=== PATIENT | female | born 1965 | race Caucasian/White ===

== ENCOUNTER 2020-02-28 01:30 | Observation (INO) ==
[2020-02-28] MEDS ORDERED: Acetaminophen 325 MG TABLET PO PRN (03:39)
[2020-02-28] MEDS ORDERED: Naloxone 0.4 MG/ML INJ IVP PRN (03:39)
[2020-02-28] MEDS ORDERED: Ondansetron 4 MG/2 ML VIAL IVP PRN (04:44)
[2020-02-28] MEDS ORDERED: Gadolinium Contrast Agent (WT Based) IV PRN (04:47)
[2020-02-28 05:16] LABS: Basophils % 0.2 %; Eosinophils # 0.1 K/mcL (0.0-0.6); Eosinophils % 0.7 %; Hematocrit 40.3 % (35.3-44.9); Hemoglobin 13.9 g/dL (11.5-15.4); Immature Granulocytes % 0.3 % (0-4); Lymphocytes # 2.6 K/mcL (0.6-4.6); Lymphocytes % 22.6 %; Mean Corpuscular HGB Conc 34.5 g/dL (31.6-35.5); Mean Corpuscular Hemoglobin 32.8 pg (28.0-33.3); Mean Platelet Volume 9.2 fL (9.4-12.4); Monocytes # 0.7 K/mcL (0.0-1.3); Neutrophils # 8.1 K/mcL (1.6-8.9); Platelet Count 175 K/mcL (140-400); Red Blood Count 4.24 M/mcL (3.82-4.97); Red Cell Distribution Width 12.5 % (11.5-14.5); Segmented Neutrophils % 70.2 %; White Blood Count 11.6 K/mcL (4.3-11.1)
[2020-02-28 05:18] LABS: Prothrombin Time 11.1 Seconds (9.4-12.1)
[2020-02-28] MEDS: 0.9 % Sodium Chloride 1,000 ML IVC SCH ×2 (05:34→20:48)
[2020-02-28 05:40] LABS: Alanine Aminotransferase 10 Units/L (7-52); Albumin 3.8 g/dL (3.5-5.7); Albumin/Globulin Ratio 1.8 (1.1-2.2); Alkaline Phosphatase 61 Units/L (34-104); Aspartate Amino Transferase 15 Units/L (13-39); BUN/Creatinine Ratio 8 (6-26); Bilirubin,Total 0.6 mg/dL (0.3-1.0); Blood Urea Nitrogen 9 mg/dL (6-20); Calcium 8.9 mg/dL (8.6-10.3); Carbon Dioxide 25 mEq/L (23-29); Chloride 101 mEq/L (98-107); Chol/HDL Ratio 4.4 (0-4.9); Cholesterol 157 mg/dL (< 200); Globulin 2.1 g/dL (2.4-3.5); Glucose 110 mg/dL (70-105); HDL Cholesterol 36 mg/dL (40-59); LDL Cholesterol,Calculated 92 mg/dL (0-99); Osmolality,Calculated 277 (280-300); Phosphorous 2.2 mg/dL (2.7-4.5); Potassium 3.8 mEq/L (3.5-5.1); Sodium 134 mEq/L (136-145); Total Protein 5.9 g/dL (6.4-8.9); Triglycerides 145 mg/dL (< 150); eGFR For African Americans > 60 (> 60); eGFR For Non-African Americans 52 (> 60)
[2020-02-28] MEDS ORDERED: levETIRAcetam 1,000 MG in 0.9 % Sodium Chloride 100 ML IVPB SCH (09:00)
[2020-02-28] MEDS ORDERED: *HR* LORazepam 2 MG/ML VIAL IVP PRN (11:26)
[2020-02-28] MEDS ORDERED: *HR* Enoxaparin 30 MG/0.3 ML SYRINGE SQ SCH (12:18)
[2020-02-28] MEDS: levETIRAcetam 250 MG TABLET PO SCH (18:13)
[2020-02-29 04:30] LABS: Basophils % 0.2 %; Eosinophils # 0.1 K/mcL (0.0-0.6); Eosinophils % 1.7 %; Hematocrit 40.5 % (35.3-44.9); Hemoglobin 13.5 g/dL (11.5-15.4); Immature Granulocytes % 0.2 % (0-4); Lymphocytes # 2.8 K/mcL (0.6-4.6); Lymphocytes % 34.5 %; Mean Corpuscular HGB Conc 33.3 g/dL (31.6-35.5); Mean Corpuscular Hemoglobin 33.1 pg (28.0-33.3); Mean Corpuscular Volume 99.3 fL (83.0-100.0); Mean Platelet Volume 9.2 fL (9.4-12.4); Monocytes # 0.6 K/mcL (0.0-1.3); Monocytes % 7.7 %; Neutrophils # 4.6 K/mcL (1.6-8.9); Platelet Count 168 K/mcL (140-400); Red Blood Count 4.08 M/mcL (3.82-4.97); Red Cell Distribution Width 12.8 % (11.5-14.5); Segmented Neutrophils % 55.7 %; White Blood Count 8.2 K/mcL (4.3-11.1)
[2020-02-29 04:50] LABS: BUN/Creatinine Ratio 6 (6-26); Blood Urea Nitrogen 6 mg/dL (6-20); Calcium 8.6 mg/dL (8.6-10.3); Carbon Dioxide 26 mEq/L (23-29); Chloride 110 mEq/L (98-107); Glucose 100 mg/dL (70-105); Osmolality,Calculated 290 (280-300); Potassium 3.8 mEq/L (3.5-5.1); Sodium 141 mEq/L (136-145); eGFR For African Americans > 60 (> 60); eGFR For Non-African Americans 58 (> 60)
[2020-02-29 04:51] LABS: Phosphorous 2.7 mg/dL (2.7-4.5)
[2020-02-29] MEDS: levETIRAcetam 250 MG TABLET PO SCH (05:52)
[2020-02-29 06:37] VITALS: BP 121/74
[2020-02-29] MEDS ORDERED: atenoloL 25 MG TABLET PO SCH (09:00)
[2020-03-01 07:58] LABS: ANA IgG by ELISA NONE DETECTED (None Detected)
== END 2020-02-29 12:10 | disposition home or self-care (01) ==
LOC: 3BNU → SUATTDRO 03:01
PROVIDERS: ADMIT Internal Medicine; ATTEND Internal Medicine

== ENCOUNTER 2021-07-02 13:34 | Inpatient (IN) ==
[~2021-07-02 13:34] MED LIST: cefTRIAXone 1,000 MG in 0.9 % Sodium Chloride Mini Bag 100 ML IVPB SCH
[2021-07-02] MEDS ORDERED: 0.9 % Sodium Chloride 1,000 ML IVC ONE ×2 (15:12→18:56)
[2021-07-02] MEDS ORDERED: Isovue-370 500 ML BOTTLE IVP ONE (15:49)
[2021-07-02 16:09] LABS: Basophils % 0.1 %; Hemoglobin 12.1 g/dL (11.5-15.4); Immature Granulocytes % 1.4 % (0-4); Lymphocytes # 0.7 K/mcL (0.6-4.6); Lymphocytes % 3.5 %; Mean Corpuscular HGB Conc 33.6 g/dL (31.6-35.5); Mean Corpuscular Hemoglobin 33.1 pg (28.0-33.3); Mean Corpuscular Volume 98.4 fL (83.0-100.0); Mean Platelet Volume 9.7 fL (9.4-12.4); Monocytes # 0.8 K/mcL (0.0-1.3); Monocytes % 4.1 %; Neutrophils # 18.4 K/mcL (1.6-8.9); Platelet Count 124 K/mcL (140-400); Red Blood Count 3.66 M/mcL (3.82-4.97); Red Cell Distribution Width 13.1 % (11.5-14.5); Segmented Neutrophils % 90.9 %; White Blood Count 20.3 K/mcL (4.3-11.1)
[2021-07-02 16:30] LABS: Albumin 3.2 g/dL (3.5-5.7); Albumin/Globulin Ratio 1.2 (1.1-2.2); Bilirubin,Direct 0.1 mg/dL (0.0-0.2); Bilirubin,Indirect 0.6 mg/dL (0.0-1.0); Bilirubin,Total 0.7 mg/dL (0.3-1.0); Calcium 8.4 mg/dL (8.6-10.3); Globulin 2.7 g/dL (2.4-3.5); Potassium 4.5 mEq/L (3.5-5.1); Total Protein 5.9 g/dL (6.4-8.9); Troponin I 0.06 ng/mL (< 0.04)
[2021-07-02] MEDS ORDERED: Aspirin Enteric Coated 81 MG Tablet PO ONE (16:35)
[2021-07-02 17:29] LABS: Amorphous Sediment,Urine Few per hpf (None-Few); Bacteria,Urine Many per hpf (None-Few); Bilirubin,Urine Negative (Negative); Blood,Urine Large (Negative); Clarity,Urine Turbid (Clear); Color,Urine Yellow (Yellow); Glucose,Urine (UA) Normal (Normal); Ketones,Urine Negative (Negative); Leukocyte Esterase,Urine Moderate (Negative); Mucus,Urine Few per lpf (None-Few); Nitrite,Urine Positive (Negative); PH,Urine 5.5 pH Units (5.0-8.0); Protein,Urine 100 mg/dL (Neg-Trace); RBC,Urine 0-3 per hpf (0-3); Specific Gravity,Urine 1.008 (1.010-1.025); Squamous Epithelial Cell,Urine Few per hpf (None-Few); Urobilinogen,Urine Normal (Normal)
[2021-07-02] MEDS ORDERED: cefTRIAXone 1,000 MG in Water for inj. (sterile) 10 ML IVP ONE (17:47)
[2021-07-02] MEDS ORDERED: Melatonin 3 MG TABLET PO PRN (20:49)
[2021-07-02] MEDS ORDERED: Ondansetron 4 MG/2 ML VIAL IVP PRN (20:49)
[2021-07-02] MEDS ORDERED: Naloxone 0.4 MG/ML INJ IVP PRN (20:49)
[2021-07-02] MEDS: 0.9 % Sodium Chloride 1,000 ML IVC SCH ×2 (22:39→22:52)
[2021-07-03 02:21] LABS: Sodium, Urine 22.6 mEq/L
[2021-07-03] MEDS ORDERED: MetroNIDAZOLE 500 MG/100 ML 500 MG/100 ML BAG IVPB SCH (08:00)
[2021-07-03] MEDS ORDERED: Morphine Sulfate 2 MG/ML SYRINGE IVP PRN ×2 (08:47→13:49)
[2021-07-03] MEDS ORDERED: Acetaminophen 325 MG TABLET PO PRN (08:48)
[2021-07-03 08:51] LABS: Acinetobacter baumannii by PCR Not Detected (Not Detect); Candida albicans by PCR Not Detected (Not Detect); Candida glabrata by PCR Not Detected (Not Detect); Candida krusei by PCR Not Detected (Not Detect); Candida parapsilosis by PCR Not Detected (Not Detect); Candida tropicalis by PCR Not Detected (Not Detect); Enterobacter cloacae Cmplx PCR Not Detected (Not Detect); Enterococcus by PCR Not Detected (Not Detect); Escherichia coli by PCR DETECTED (Not Detect); Klebsiella oxytoca by PCR Not Detected (Not Detect); Klebsiella pneumoniae by PCR Not Detected (Not Detect); Proteus by PCR Not Detected (Not Detect); Pseudomonas aeruginosa by PCR Not Detected (Not Detect); Serratia marcescens by PCR Not Detected (Not Detect); Staphylococcus aureus by PCR Not Detected (Not Detect); Staphylococcus by PCR Not Detected (Not Detect); Streptococcus agalactiae(B)PCR Not Detected (Not Detect); Streptococcus by PCR Not Detected (Not Detect); Streptococcus pneumoniae PCR Not Detected (Not Detect); Streptococcus pyogenes (A) PCR Not Detected (Not Detect)
[2021-07-03 08:52] LABS: Hematocrit 35.1 % (35.3-44.9); Hemoglobin 11.8 g/dL (11.5-15.4); Mean Corpuscular HGB Conc 33.6 g/dL (31.6-35.5); Mean Corpuscular Hemoglobin 33.3 pg (28.0-33.3); Mean Corpuscular Volume 99.2 fL (83.0-100.0); Platelet Count 115 K/mcL (140-400); Red Blood Count 3.54 M/mcL (3.82-4.97); Red Cell Distribution Width 13.3 % (11.5-14.5); White Blood Count 13.4 K/mcL (4.3-11.1)
[2021-07-03] MEDS ORDERED: cefTRIAXone 1,000 MG in 0.9 % Sodium Chloride Mini Bag 100 ML IVPB SCH (09:00)
[2021-07-03 09:13] LABS: Calcium 7.9 mg/dL (8.6-10.3); Magnesium 1.9 mg/dL (1.6-2.6); Potassium 4.4 mEq/L (3.5-5.1)
[2021-07-03] MEDS ORDERED: *HR* FentaNYL (PF) 100 MCG/2 ML VIAL ONE (11:41)
[2021-07-03] MEDS ORDERED: Ondansetron 4 MG/2 ML VIAL ONE (11:41)
[2021-07-03] MEDS ORDERED: *HR* Propofol 200 MG/20 ML VIAL IVP ONE (11:41)
[2021-07-03] MEDS ORDERED: Lidocaine -MPF 2% 2 ML VIAL ONE (11:41)
[2021-07-03] MEDS ORDERED: Isovue-300 50ML VIAL ONE (11:49)
[2021-07-03] MEDS ORDERED: Acetaminophen IV 1,000 MG/100 ML BAG IVPB ONE (11:56)
[2021-07-03] MEDS ORDERED: Famotidine 20 MG/2 ML VIAL ONE (11:56)
[2021-07-03] MEDS ORDERED: *HR* Labetalol 20 MG/4 ML SYRINGE IVP PRN (12:13)
[2021-07-03] MEDS ORDERED: *HR* HYDROmorphone (PF) 1 MG/ML SYRINGE IVP PRN (12:13)
[2021-07-03] MEDS ORDERED: *HR* OxyCODONE Immed Rel 5 MG TABLET PO PRN (12:13)
[2021-07-03] MEDS ORDERED: *HR* HYDROmorphone 2 MG TABLET PO PRN (12:13)
[2021-07-03] MEDS ORDERED: Famotidine 20 MG/2 ML VIAL IVP ONE ×2 (12:13→13:49)
[2021-07-03] MEDS ORDERED: Lidocaine -MPF 4% 5 ML AMPUL ONE (12:22)
[2021-07-03] MEDS ORDERED: *HR* Succinylcholine 200 MG/10 ML VIAL IVP ONE (12:22)
[2021-07-03] MEDS ORDERED: LEVETIRACETAM 500 MG PO SCH (13:45)
[2021-07-03] MEDS ORDERED: Ondansetron 4 MG/2 ML VIAL IVP PRN (13:49)
[2021-07-03] MEDS ORDERED: Melatonin 3 MG TABLET PO PRN (13:49)
[2021-07-03] MEDS ORDERED: Isovue-370 500 ML BOTTLE IVP ONE (13:49)
[2021-07-03] MEDS ORDERED: Naloxone 0.4 MG/ML INJ IVP PRN (13:49)
[2021-07-03] MEDS: levETIRAcetam 250 MG TABLET PO SCH ×2 (15:04→20:52)
[2021-07-03] MEDS: MetroNIDAZOLE 500 MG/100 ML 500 MG/100 ML BAG IVPB SCH (15:05)
[2021-07-04] MEDS: MetroNIDAZOLE 500 MG/100 ML 500 MG/100 ML BAG IVPB SCH ×3 (00:19→16:00)
[2021-07-04 06:42] LABS: Hematocrit 31.3 % (35.3-44.9); Hemoglobin 10.7 g/dL (11.5-15.4); Mean Corpuscular HGB Conc 34.2 g/dL (31.6-35.5); Mean Corpuscular Hemoglobin 34.6 pg (28.0-33.3); Mean Corpuscular Volume 101.3 fL (83.0-100.0); Mean Platelet Volume 12.2 fL (9.4-12.4); Platelet Count 193 K/mcL (140-400); Red Blood Count 3.09 M/mcL (3.82-4.97); Red Cell Distribution Width 13.9 % (11.5-14.5); White Blood Count 9.2 K/mcL (4.3-11.1)
[2021-07-04 07:02] LABS: Hypochromasia Present (Not Present); Lymphocytes # 1.1 K/mcL (0.6-4.6); Monocytes # 0.6 K/mcL (0.0-1.3); Neutrophils # 7.5 K/mcL (1.6-8.9); Platelet Estimate Normal (Normal); Reactive Lymphocytes Present (Not Present)
[2021-07-04] MEDS ORDERED: CITALOPRAM HYDROBROMIDE 40 MG PO SCH (09:00)
[2021-07-04] MEDS ORDERED: atenoloL 25 MG TABLET PO SCH (09:00)
[2021-07-04] MEDS ORDERED: NON-FORMULARY MEDICATION 1 EACH EACH (Multivitamin [One Daily Multivitamin] 1 EACH Tablet) PO SCH (09:00)
[2021-07-04] MEDS: levETIRAcetam 250 MG TABLET PO SCH ×2 (09:28→20:26)
[2021-07-04] MEDS: Multivit/Ca/Min/Fe/FA 1 TAB TABLET PO SCH (09:28)
[2021-07-04] MEDS: cefTRIAXone 1,000 MG in 0.9 % Sodium Chloride Mini Bag 100 ML IVPB SCH (09:30)
[2021-07-04] MEDS: atenoloL 25 MG TABLET PO SCH (09:30)
[2021-07-04 10:36] LABS: Calcium 8.2 mg/dL (8.6-10.3); Magnesium 1.9 mg/dL (1.6-2.6); Phosphorous 1.8 mg/dL (2.7-4.5)
[2021-07-04] MEDS: Aspirin 81 MG TAB.CHEW PO SCH (13:34)
[2021-07-04] MEDS ORDERED: Perflutren Lipid Microsphere 1.3 ML in 0.9 % Sodium Chloride 8.7 ML IVP PRN (15:12)
[2021-07-04] MEDS: Acetaminophen 325 MG TABLET PO PRN (18:45)
[2021-07-05] MEDS: MetroNIDAZOLE 500 MG/100 ML 500 MG/100 ML BAG IVPB SCH ×3 (00:22→17:56)
[2021-07-05 05:02] LABS: Basophils % 0.3 %; Eosinophils # 0.1 K/mcL (0.0-0.6); Eosinophils % 0.9 %; Hematocrit 32.6 % (35.3-44.9); Immature Granulocytes % 0.8 % (0-4); Lymphocytes # 0.7 K/mcL (0.6-4.6); Lymphocytes % 6.7 %; Mean Corpuscular HGB Conc 33.7 g/dL (31.6-35.5); Mean Corpuscular Hemoglobin 33.4 pg (28.0-33.3); Mean Corpuscular Volume 99.1 fL (83.0-100.0); Mean Platelet Volume 10.3 fL (9.4-12.4); Monocytes # 0.9 K/mcL (0.0-1.3); Monocytes % 8.9 %; Neutrophils # 8.3 K/mcL (1.6-8.9); Platelet Count 155 K/mcL (140-400); Red Blood Count 3.29 M/mcL (3.82-4.97); Red Cell Distribution Width 13.4 % (11.5-14.5); Segmented Neutrophils % 82.4 %; White Blood Count 10.1 K/mcL (4.3-11.1)
[2021-07-05 05:12] LABS: INR 1.2; Prothrombin Time 13.7 Seconds (9.4-12.1)
[2021-07-05 05:34] LABS: Calcium 7.7 mg/dL (8.6-10.3); Magnesium 1.7 mg/dL (1.6-2.6); Potassium 3.8 mEq/L (3.5-5.1)
[2021-07-05 05:35] LABS: Chol/HDL Ratio 7.8 (0-4.9); Troponin I 0.03 ng/mL (< 0.04)
[2021-07-05 05:36] LABS: Estimated Average Glucose 117 mg/dl; Hemoglobin A1C 5.7 %
[2021-07-05] MEDS: cefTRIAXone 1,000 MG in 0.9 % Sodium Chloride Mini Bag 100 ML IVPB SCH (09:33)
[2021-07-05] MEDS: Aspirin 81 MG TAB.CHEW PO SCH (09:33)
[2021-07-05] MEDS: levETIRAcetam 250 MG TABLET PO SCH ×2 (09:33→22:07)
[2021-07-05] MEDS: atenoloL 25 MG TABLET PO SCH (09:33)
[2021-07-05] MEDS: Multivit/Ca/Min/Fe/FA 1 TAB TABLET PO SCH (09:33)
[2021-07-05] MEDS: Acetaminophen 325 MG TABLET PO PRN (18:29)
[2021-07-05] MEDS: Nicotine 21 MG PATCH.TD24 TD SCH (18:30)
[2021-07-05] MEDS ORDERED: Aspirin 325 MG TABLET PO SCH (19:15)
[2021-07-06 06:53] LABS: Basophils % 0.3 %; Eosinophils # 0.2 K/mcL (0.0-0.6); Eosinophils % 2.3 %; Hematocrit 34.9 % (35.3-44.9); Hemoglobin 11.7 g/dL (11.5-15.4); Immature Granulocytes % 1.4 % (0-4); Lymphocytes # 1.2 K/mcL (0.6-4.6); Lymphocytes % 11.2 %; Mean Corpuscular HGB Conc 33.5 g/dL (31.6-35.5); Mean Corpuscular Hemoglobin 32.9 pg (28.0-33.3); Mean Platelet Volume 10.3 fL (9.4-12.4); Monocytes % 9.2 %; Platelet Count 208 K/mcL (140-400); Red Blood Count 3.56 M/mcL (3.82-4.97); Red Cell Distribution Width 13.2 % (11.5-14.5); Segmented Neutrophils % 75.6 %; White Blood Count 10.5 K/mcL (4.3-11.1)
[2021-07-06 06:57] LABS: Neutrophils # 7.9 K/mcL (1.6-8.9)
[2021-07-06 07:09] LABS: Calcium 8.1 mg/dL (8.6-10.3); Magnesium 1.7 mg/dL (1.6-2.6); Phosphorous 2.8 mg/dL (2.7-4.5); Potassium 3.8 mEq/L (3.5-5.1)
[2021-07-06] MEDS: levETIRAcetam 250 MG TABLET PO SCH ×2 (10:17→19:48)
[2021-07-06] MEDS: Aspirin 325 MG TABLET PO SCH (10:17)
[2021-07-06] MEDS: Multivit/Ca/Min/Fe/FA 1 TAB TABLET PO SCH (10:17)
[2021-07-06] MEDS: Acetaminophen 325 MG TABLET PO PRN (10:18)
[2021-07-06] MEDS: Nicotine 21 MG PATCH.TD24 TD SCH (10:18)
[2021-07-06] MEDS: atenoloL 25 MG TABLET PO SCH (10:19)
[2021-07-06] MEDS: cefTRIAXone 1,000 MG in 0.9 % Sodium Chloride Mini Bag 100 ML IVPB SCH (10:20)
[2021-07-06] MEDS: MetroNIDAZOLE 500 MG/100 ML 500 MG/100 ML BAG IVPB SCH ×2 (10:22→10:23)
[2021-07-06] MEDS ORDERED: Lidocaine Viscous Oral Soln 15 ML SOLUTION MM PRN (13:25)
[2021-07-06] MEDS ORDERED: 0.9 % Sodium Chloride 500 ML IVC ONE (13:26)
[2021-07-06] MEDS ORDERED: *HR* Midazolam HCl 2 MG/2 ML VIAL IVP PRN (13:26)
[2021-07-06] MEDS ORDERED: *HR* Midazolam HCl 5 MG/5 ML VIAL IVP ONE ×2 (13:45→13:46)
[2021-07-06] MEDS: *HR* FentaNYL (PF) 100 MCG/2 ML VIAL IVP PRN ×2 (14:05→14:10)
[2021-07-06] MEDS: metroNIDAZOLE 500 MG TABLET PO SCH ×2 (16:44→19:48)
[2021-07-07 02:21] LABS: Basophils % 0.3 %; Eosinophils # 0.3 K/mcL (0.0-0.6); Eosinophils % 3.2 %; Hematocrit 32.7 % (35.3-44.9); Hemoglobin 11.1 g/dL (11.5-15.4); Immature Granulocytes % 1.3 % (0-4); Lymphocytes # 1.7 K/mcL (0.6-4.6); Lymphocytes % 19.2 %; Mean Corpuscular HGB Conc 33.9 g/dL (31.6-35.5); Mean Corpuscular Hemoglobin 33.3 pg (28.0-33.3); Mean Corpuscular Volume 98.2 fL (83.0-100.0); Mean Platelet Volume 10.3 fL (9.4-12.4); Monocytes % 11.7 %; Neutrophils # 5.7 K/mcL (1.6-8.9); Platelet Count 235 K/mcL (140-400); Red Blood Count 3.33 M/mcL (3.82-4.97); Red Cell Distribution Width 13.3 % (11.5-14.5); Segmented Neutrophils % 64.3 %; White Blood Count 8.8 K/mcL (4.3-11.1)
[2021-07-07 02:44] LABS: Calcium 7.9 mg/dL (8.6-10.3); Magnesium 1.6 mg/dL (1.6-2.6); Phosphorous 3.2 mg/dL (2.7-4.5)
[2021-07-07 03:20] LABS: Platelet Estimate Normal (Normal)
[2021-07-07 06:28] VITALS: PULSE 71
[2021-07-07] MEDS: levETIRAcetam 250 MG TABLET PO SCH (07:22)
[2021-07-07] MEDS: atenoloL 25 MG TABLET PO SCH (07:22)
[2021-07-07] MEDS: metroNIDAZOLE 500 MG TABLET PO SCH (07:22)
[2021-07-07] MEDS: Multivit/Ca/Min/Fe/FA 1 TAB TABLET PO SCH (07:22)
[2021-07-07] MEDS: cefTRIAXone 1,000 MG in 0.9 % Sodium Chloride Mini Bag 100 ML IVPB SCH (07:23)
[2021-07-07] MEDS: Aspirin 325 MG TABLET PO SCH (07:23)
[2021-07-07] MEDS: Nicotine 21 MG PATCH.TD24 TD SCH (07:23)
[2021-07-07 10:52] VITALS: BP 117/76; TEMP 98.3; O2SAT 98
[2021-07-08 12:59] LABS: Calculi Mass 51 mg
== END 2021-07-07 13:25 | disposition home or self-care (01) | DRG 853 ==
LOC: EMEROOARM 13:34 → 2ANU 13:34 → SUATTDRO 07-03 22:15
PROVIDERS: ADMIT Internal Medicine; ATTEND Internal Medicine

== ENCOUNTER 2022-01-26 09:31 | Inpatient (IN) ==
[2022-01-26] MEDS ORDERED: Isovue-370 500 ML BOTTLE IVP ONE (09:51)
[2022-01-26 10:18] LABS: VBG HCO3 4 mEq/L (21-27); VBG PCO2 18 mmHg (41-51); VBG PH 6.97 pH Units (7.32-7.42); VBG PO2 75 mmHg (25-50)
[2022-01-26 10:33] LABS: Alanine Aminotransferase 53 Units/L (7-52); Albumin 4.2 g/dL (3.5-5.7); Albumin/Globulin Ratio 1.2 (1.1-2.2); Alkaline Phosphatase 101 Units/L (34-104); Aspartate Amino Transferase 35 Units/L (13-39); BUN/Creatinine Ratio 13 (6-26); Bilirubin,Total 0.4 mg/dL (0.3-1.0); Blood Urea Nitrogen 32 mg/dL (6-20); Calcium 9.8 mg/dL (8.6-10.3); Carbon Dioxide 5 mEq/L (23-29); Chloride 109 mEq/L (98-107); Globulin 3.6 g/dL (2.4-3.5); Glucose 130 mg/dL (70-105); Magnesium 2.1 mg/dL (1.6-2.6); Osmolality,Calculated 295 (280-300); Potassium 4.5 mEq/L (3.5-5.1); Sodium 138 mEq/L (136-145); Total Protein 7.8 g/dL (6.4-8.9); eGFR For African Americans 24 (> 60); eGFR For Non-African Americans 19 (> 60)
[2022-01-26 11:30] LABS: Acetaminophen < 10 mcg/mL (10-20); Creatine Kinase 72 Units/L (30-223); Ethanol < 10 mg/dL (Less than 10); Salicylate < 2.5 mg/dL (15.0-30.0); Troponin I 0.03 ng/mL (< 0.04)
[2022-01-26 11:30] LABS: Basophils # 0.1 K/mcL (0.0-0.2); Basophils % 0.2 %; Hematocrit 46.5 % (35.3-44.9); Hemoglobin 14.7 g/dL (11.5-15.4); Immature Granulocytes % 1.5 % (0-4); Lymphocytes # 1.4 K/mcL (0.6-4.6); Mean Corpuscular HGB Conc 31.6 g/dL (31.6-35.5); Mean Corpuscular Hemoglobin 33.6 pg (28.0-33.3); Mean Corpuscular Volume 106.2 fL (83.0-100.0); Mean Platelet Volume 8.6 fL (9.4-12.4); Monocytes # 1.2 K/mcL (0.0-1.3); Monocytes % 5.2 %; Neutrophils # 19.7 K/mcL (1.6-8.9); Platelet Count 371 K/mcL (140-400); Red Blood Count 4.38 M/mcL (3.82-4.97); Red Cell Distribution Width 14.8 % (11.5-14.5); Segmented Neutrophils % 87.1 %; White Blood Count 22.6 K/mcL (4.3-11.1)
[2022-01-26] MEDS ORDERED: Cefepime HCl 2,000 MG in 0.9 % Sodium Chloride 10 ML IVP ONE (12:10)
[2022-01-26] MEDS ORDERED: levETIRAcetam 250 MG TABLET PO ONE (12:44)
[2022-01-26] MEDS ORDERED: levETIRAcetam 1,500 MG in 0.9 % Sodium Chloride 250 ML IVPB ONE (13:10)
[2022-01-26] MEDS: 0.9 % Sodium Chloride 1,000 ML IVC SCH ×2 (13:25→16:45)
[2022-01-26] MEDS ORDERED: Naloxone 0.4 MG/ML INJ IVP PRN (13:29)
[2022-01-26] MEDS ORDERED: Dextrose 4 GM Chewable Tablets PO PRN ×2 (13:32)
[2022-01-26] MEDS ORDERED: D5% in Water 1,000 ML IVC PRN (13:32)
[2022-01-26] MEDS ORDERED: Ondansetron 4 MG/2 ML VIAL IVP PRN (13:32)
[2022-01-26] MEDS ORDERED: *HR* Dextrose 50 % in Water (Syg) 50 ML SYRINGE IVP PRN (13:32)
[2022-01-26 14:18] LABS: Bacteria,Urine Few per hpf (None-Few); Bilirubin,Urine Negative (Negative); Blood,Urine Trace (Negative); Clarity,Urine Clear (Clear); Color,Urine Light-Yellow (Yellow); Glucose,Urine (UA) Normal (Normal); Ketones,Urine 10 mg/dL (Negative); Leukocyte Esterase,Urine Negative (Negative); Mucus,Urine Few per lpf (None-Few); Nitrite,Urine Positive (Negative); Protein,Urine 70 mg/dL (Neg-Trace); RBC,Urine 0-3 per hpf (0-3); Specific Gravity,Urine > 1.030 (1.010-1.025); Squamous Epithelial Cell,Urine Few per hpf (None-Few); Urobilinogen,Urine Normal (Normal)
[2022-01-26 14:22] LABS: Amphetamine Screen,Urine Negative ng/mL (Cutoff=1000); Barbiturate Screen,Urine Negative ng/mL (Cutoff=200); Benzodiazepines Screen,Urine Negative ng/mL (Cutoff=200); Cannabinoid Screen,Urine Negative ng/mL (Cutoff = 50); Cocaine Screen,Urine Negative ng/mL (Cutoff= 300); Opiate Screen,Urine Negative ng/mL (Cutoff=300); Phencyclidine Screen,Urine Negative ng/mL (Cutoff=25)
[2022-01-26] MEDS ORDERED: Thiamine (B-1) 100 MG in 0.9 % Sodium Chloride 50 ML IVPB STA (15:33)
[2022-01-26] MEDS: Sodium Bicarbonate 150 MEQ in D5% in Water 1,000 ML IVC SCH (18:29)
[2022-01-26 18:32] LABS: VBG HCO3 5 mEq/L (21-27); VBG PCO2 17 mmHg (41-51); VBG PO2 72 mmHg (25-50)
[2022-01-26] MEDS ORDERED: cefTRIAXone 1,000 MG in 0.9 % Sodium Chloride Mini Bag 100 ML IVPB SCH (20:00)
[2022-01-26] MEDS ORDERED: Piperacillin/Tazobactam 3.375 GM in 0.9 % Sodium Chloride Mini Bag 100 ML IVPB SCH (20:00)
[2022-01-26] MEDS: cefTRIAXone 1,000 MG in 0.9 % Sodium Chloride Mini Bag 100 ML IVPB SCH (20:29)
[2022-01-26] MEDS: levETIRAcetam 250 MG TABLET PO SCH (20:31)
[2022-01-27] MEDS: Sodium Bicarbonate 150 MEQ in D5% in Water 1,000 ML IVC SCH ×3 (02:53→20:28)
[2022-01-27 03:20] LABS: Basophils % 0.2 %; Eosinophils # 0.2 K/mcL (0.0-0.6); Eosinophils % 1.4 %; Hematocrit 38.8 % (35.3-44.9); Immature Granulocytes % 0.6 % (0-4); Lymphocytes # 1.5 K/mcL (0.6-4.6); Lymphocytes % 12.2 %; Mean Corpuscular HGB Conc 32.2 g/dL (31.6-35.5); Mean Corpuscular Hemoglobin 33.9 pg (28.0-33.3); Mean Corpuscular Volume 105.1 fL (83.0-100.0); Mean Platelet Volume 8.9 fL (9.4-12.4); Monocytes # 1.1 K/mcL (0.0-1.3); Monocytes % 8.9 %; Neutrophils # 9.3 K/mcL (1.6-8.9); Platelet Count 285 K/mcL (140-400); Red Blood Count 3.69 M/mcL (3.82-4.97); Segmented Neutrophils % 76.7 %; White Blood Count 12.1 K/mcL (4.3-11.1)
[2022-01-27 03:26] LABS: Hemoglobin 12.5 g/dL (11.5-15.4)
[2022-01-27 03:42] LABS: Albumin 3.1 g/dL (3.5-5.7); Albumin/Globulin Ratio 1.2 (1.1-2.2); Bilirubin,Direct 0.1 mg/dL (0.0-0.2); Bilirubin,Indirect 0.2 mg/dL (0.0-1.0); Bilirubin,Total 0.3 mg/dL (0.3-1.0); Globulin 2.5 g/dL (2.4-3.5); Total Protein 5.6 g/dL (6.4-8.9)
[2022-01-27 03:46] LABS: Calcium 8.3 mg/dL (8.6-10.3); Magnesium 1.8 mg/dL (1.6-2.6); Potassium 3.2 mEq/L (3.5-5.1)
[2022-01-27] MEDS ORDERED: 0.9 % Sodium Chloride 250 ML ONE (07:49)
[2022-01-27] MEDS: Multivit/Ca/Min/Fe/FA 1 TAB TABLET PO SCH (08:03)
[2022-01-27] MEDS: Loratadine 10 MG TABLET PO SCH (08:04)
[2022-01-27] MEDS: atenoloL 25 MG TABLET PO SCH (08:04)
[2022-01-27] MEDS: Aspirin 81 MG TAB.CHEW PO SCH (08:05)
[2022-01-27] MEDS: cefTRIAXone 1,000 MG in 0.9 % Sodium Chloride Mini Bag 100 ML IVPB SCH (08:05)
[2022-01-27] MEDS: levETIRAcetam 250 MG TABLET PO SCH ×2 (08:05→20:30)
[2022-01-27 09:15] LABS: VBG HCO3 15 mEq/L (21-27); VBG PCO2 31 mmHg (41-51); VBG PH 7.29 pH Units (7.32-7.42); VBG PO2 60 mmHg (25-50)
[2022-01-27 14:36] LABS: Calcium 8.1 mg/dL (8.6-10.3); Potassium 3.3 mEq/L (3.5-5.1)
[2022-01-28] MEDS: atenoloL 25 MG TABLET PO SCH (09:16)
[2022-01-28] MEDS: Multivit/Ca/Min/Fe/FA 1 TAB TABLET PO SCH (09:16)
[2022-01-28] MEDS: Aspirin 81 MG TAB.CHEW PO SCH (09:16)
[2022-01-28] MEDS: Loratadine 10 MG TABLET PO SCH (09:16)
[2022-01-28] MEDS: levETIRAcetam 250 MG TABLET PO SCH ×2 (09:17→19:38)
[2022-01-28] MEDS: cefTRIAXone 1,000 MG in 0.9 % Sodium Chloride Mini Bag 100 ML IVPB SCH (09:17)
[2022-01-28 10:39] LABS: VBG HCO3 24 mEq/L (21-27); VBG PCO2 29 mmHg (41-51); VBG PH 7.53 pH Units (7.32-7.42); VBG PO2 133 mmHg (25-50)
[2022-01-28 10:58] LABS: BUN/Creatinine Ratio 14 (6-26); Blood Urea Nitrogen 15 mg/dL (6-20); Calcium 7.9 mg/dL (8.6-10.3); Carbon Dioxide 27 mEq/L (23-29); Chloride 106 mEq/L (98-107); Glucose 114 mg/dL (70-105); Magnesium 1.6 mg/dL (1.6-2.6); Osmolality,Calculated 294 (280-300); Phosphorous 1.3 mg/dL (2.7-4.5); Potassium 2.9 mEq/L (3.5-5.1); Sodium 141 mEq/L (136-145); eGFR For African Americans > 60 (> 60); eGFR For Non-African Americans 51 (> 60)
[2022-01-28] MEDS ORDERED: Potassium Phosphate 44 MEQ in 0.9 % Sodium Chloride 250 ML IVPB ONE (13:36)
[2022-01-28 14:49] LABS: Basophils % 0.3 %; Mean Corpuscular Volume 96.3 fL (83.0-100.0); Nucleated Red Blood Cells 0.3 /100 WBC (0)
[2022-01-28 14:51] LABS: Eosinophils # 0.2 K/mcL (0.0-0.6); Eosinophils % 1.4 %; Hemoglobin 10.7 g/dL (11.5-15.4); Immature Granulocytes % 1.5 % (0-4); Immature Platelets 1.9 % (1.1-6.1); Lymphocytes # 2.2 K/mcL (0.6-4.6); Lymphocytes % 21.4 %; Mean Corpuscular HGB Conc 34.5 g/dL (31.6-35.5); Mean Corpuscular Hemoglobin 33.2 pg (28.0-33.3); Mean Platelet Volume 9.1 fL (9.4-12.4); Monocytes # 0.8 K/mcL (0.0-1.3); Monocytes % 7.3 %; Neutrophils # 7.1 K/mcL (1.6-8.9); Platelet Count 325 K/mcL (140-400); Red Blood Count 3.22 M/mcL (3.82-4.97); Red Cell Distribution Width 14.3 % (11.5-14.5); Segmented Neutrophils % 68.1 %; White Blood Count 10.4 K/mcL (4.3-11.1)
[2022-01-28 18:17] LABS: Platelet Estimate Normal (Normal)
[2022-01-28] MEDS ORDERED: Melatonin 3 MG TABLET PO PRN (21:38)
[2022-01-29 06:27] LABS: Basophils % 0.2 %; Eosinophils # 0.2 K/mcL (0.0-0.6); Eosinophils % 2.3 %; Hematocrit 29.6 % (35.3-44.9); Hemoglobin 10.1 g/dL (11.5-15.4); Immature Granulocytes % 0.5 % (0-4); Lymphocytes % 22.9 %; Mean Corpuscular HGB Conc 34.1 g/dL (31.6-35.5); Mean Corpuscular Hemoglobin 33.7 pg (28.0-33.3); Mean Corpuscular Volume 98.7 fL (83.0-100.0); Mean Platelet Volume 8.6 fL (9.4-12.4); Monocytes # 0.8 K/mcL (0.0-1.3); Monocytes % 8.5 %; Neutrophils # 5.8 K/mcL (1.6-8.9); Platelet Count 304 K/mcL (140-400); Red Cell Distribution Width 14.4 % (11.5-14.5); Segmented Neutrophils % 65.6 %; White Blood Count 8.8 K/mcL (4.3-11.1)
[2022-01-29 06:32] LABS: VBG HCO3 27 mEq/L (21-27); VBG PCO2 43 mmHg (41-51); VBG PH 7.41 pH Units (7.32-7.42); VBG PO2 113 mmHg (25-50)
[2022-01-29 06:48] LABS: Potassium 3.3 mEq/L (3.5-5.1)
[2022-01-29 08:39] LABS: Phosphorous 2.8 mg/dL (2.7-4.5)
[2022-01-29] MEDS: cefTRIAXone 1,000 MG in 0.9 % Sodium Chloride Mini Bag 100 ML IVPB SCH (09:34)
[2022-01-29] MEDS: levETIRAcetam 250 MG TABLET PO SCH ×2 (09:35→20:28)
[2022-01-29] MEDS: Multivit/Ca/Min/Fe/FA 1 TAB TABLET PO SCH (09:36)
[2022-01-29] MEDS: atenoloL 25 MG TABLET PO SCH (09:37)
[2022-01-29] MEDS: Loratadine 10 MG TABLET PO SCH (09:37)
[2022-01-29] MEDS: Aspirin 81 MG TAB.CHEW PO SCH (09:37)
[2022-01-30] MEDS: Aspirin 81 MG TAB.CHEW PO SCH (07:50)
[2022-01-30] MEDS: levETIRAcetam 250 MG TABLET PO SCH ×2 (07:50→20:11)
[2022-01-30] MEDS: Multivit/Ca/Min/Fe/FA 1 TAB TABLET PO SCH (07:50)
[2022-01-30] MEDS: Loratadine 10 MG TABLET PO SCH (07:51)
[2022-01-30] MEDS: cefTRIAXone 1,000 MG in 0.9 % Sodium Chloride Mini Bag 100 ML IVPB SCH (07:52)
[2022-01-30] MEDS ORDERED: 0.9 % Sodium Chloride 500 ML IVC ONE (07:57)
[2022-01-30] MEDS: atenoloL 25 MG TABLET PO SCH (08:14)
[2022-01-30 08:39] LABS: Basophils % 0.4 %; Eosinophils # 0.2 K/mcL (0.0-0.6); Eosinophils % 2.3 %; Hemoglobin 10.4 g/dL (11.5-15.4); Immature Granulocytes % 0.6 % (0-4); Lymphocytes # 1.7 K/mcL (0.6-4.6); Lymphocytes % 21.6 %; Mean Corpuscular HGB Conc 32.5 g/dL (31.6-35.5); Mean Corpuscular Hemoglobin 32.8 pg (28.0-33.3); Mean Corpuscular Volume 100.9 fL (83.0-100.0); Mean Platelet Volume 8.6 fL (9.4-12.4); Monocytes # 0.8 K/mcL (0.0-1.3); Neutrophils # 5.2 K/mcL (1.6-8.9); Platelet Count 327 K/mcL (140-400); Red Blood Count 3.17 M/mcL (3.82-4.97); Red Cell Distribution Width 14.1 % (11.5-14.5); Segmented Neutrophils % 65.1 %
[2022-01-30 08:58] LABS: Calcium 8.4 mg/dL (8.6-10.3); Potassium 3.3 mEq/L (3.5-5.1)
[2022-01-31] MEDS: Loratadine 10 MG TABLET PO SCH (07:57)
[2022-01-31] MEDS: Multivit/Ca/Min/Fe/FA 1 TAB TABLET PO SCH (07:58)
[2022-01-31] MEDS: Aspirin 81 MG TAB.CHEW PO SCH (07:58)
[2022-01-31] MEDS: levETIRAcetam 250 MG TABLET PO SCH ×2 (08:01→21:21)
[2022-01-31 09:19] LABS: Eosinophils % 2.5 %; Hematocrit 30.6 % (35.3-44.9); Hemoglobin 10.4 g/dL (11.5-15.4); Immature Granulocytes % 0.5 % (0-4); Lymphocytes % 19.9 %; Mean Corpuscular Hemoglobin 34.2 pg (28.0-33.3); Mean Corpuscular Volume 100.7 fL (83.0-100.0); Mean Platelet Volume 8.6 fL (9.4-12.4); Platelet Count 357 K/mcL (140-400); Red Blood Count 3.04 M/mcL (3.82-4.97); Segmented Neutrophils % 65.7 %; White Blood Count 8.3 K/mcL (4.3-11.1)
[2022-01-31 09:20] LABS: Basophils % 0.4 %; Eosinophils # 0.2 K/mcL (0.0-0.6); Lymphocytes # 1.7 K/mcL (0.6-4.6); Monocytes # 0.9 K/mcL (0.0-1.3); Neutrophils # 5.5 K/mcL (1.6-8.9)
[2022-01-31 09:40] LABS: Calcium 8.6 mg/dL (8.6-10.3); Potassium 3.4 mEq/L (3.5-5.1)
[2022-02-01] MEDS: Multivit/Ca/Min/Fe/FA 1 TAB TABLET PO SCH (08:37)
[2022-02-01] MEDS: levETIRAcetam 250 MG TABLET PO SCH ×2 (08:38→21:04)
[2022-02-01] MEDS: Aspirin 81 MG TAB.CHEW PO SCH (08:38)
[2022-02-01] MEDS: Loratadine 10 MG TABLET PO SCH (08:38)
[2022-02-01 16:40] LABS: Basophils % 0.4 %; Eosinophils # 0.2 K/mcL (0.0-0.6); Eosinophils % 2.6 %; Hematocrit 32.5 % (35.3-44.9); Hemoglobin 10.6 g/dL (11.5-15.4); Immature Granulocytes % 0.3 % (0-4); Lymphocytes % 25.8 %; Mean Corpuscular HGB Conc 32.6 g/dL (31.6-35.5); Mean Corpuscular Volume 101.2 fL (83.0-100.0); Mean Platelet Volume 8.5 fL (9.4-12.4); Monocytes # 0.8 K/mcL (0.0-1.3); Monocytes % 10.7 %; Neutrophils # 4.7 K/mcL (1.6-8.9); Platelet Count 393 K/mcL (140-400); Red Blood Count 3.21 M/mcL (3.82-4.97); Red Cell Distribution Width 13.4 % (11.5-14.5); Segmented Neutrophils % 60.2 %; White Blood Count 7.8 K/mcL (4.3-11.1)
[2022-02-01 16:54] LABS: Calcium 8.5 mg/dL (8.6-10.3)
[2022-02-01] MEDS: 0.9 % Sodium Chloride 1,000 ML IVC SCH (21:08)
[2022-02-02 02:21] LABS: Basophils % 0.4 %; Eosinophils # 0.2 K/mcL (0.0-0.6); Eosinophils % 2.5 %; Hematocrit 30.3 % (35.3-44.9); Hemoglobin 9.6 g/dL (11.5-15.4); Immature Granulocytes % 0.3 % (0-4); Lymphocytes # 2.4 K/mcL (0.6-4.6); Lymphocytes % 32.6 %; Mean Corpuscular HGB Conc 31.7 g/dL (31.6-35.5); Mean Corpuscular Hemoglobin 32.9 pg (28.0-33.3); Mean Corpuscular Volume 103.8 fL (83.0-100.0); Mean Platelet Volume 8.7 fL (9.4-12.4); Monocytes # 0.8 K/mcL (0.0-1.3); Monocytes % 10.5 %; Neutrophils # 3.9 K/mcL (1.6-8.9); Platelet Count 383 K/mcL (140-400); Red Blood Count 2.92 M/mcL (3.82-4.97); Red Cell Distribution Width 13.4 % (11.5-14.5); Segmented Neutrophils % 53.7 %; White Blood Count 7.2 K/mcL (4.3-11.1)
[2022-02-02 02:40] LABS: Potassium 3.7 mEq/L (3.5-5.1)
[2022-02-02] MEDS: 0.9 % Sodium Chloride 1,000 ML IVC SCH (07:59)
[2022-02-02] MEDS: Multivit/Ca/Min/Fe/FA 1 TAB TABLET PO SCH (08:00)
[2022-02-02] MEDS: levETIRAcetam 250 MG TABLET PO SCH ×2 (08:00→22:05)
[2022-02-02] MEDS: Aspirin 81 MG TAB.CHEW PO SCH (08:01)
[2022-02-02] MEDS: Loratadine 10 MG TABLET PO SCH (08:01)
[2022-02-02] MEDS ORDERED: 0.9 % Sodium Chloride 1,000 ML IVC ONE (09:00)
[2022-02-03 07:04] LABS: Basophils % 0.4 %; Eosinophils # 0.2 K/mcL (0.0-0.6); Eosinophils % 2.9 %; Hematocrit 28.2 % (35.3-44.9); Hemoglobin 9.2 g/dL (11.5-15.4); Immature Granulocytes % 0.3 % (0-4); Lymphocytes # 1.9 K/mcL (0.6-4.6); Mean Corpuscular HGB Conc 32.6 g/dL (31.6-35.5); Mean Corpuscular Hemoglobin 33.6 pg (28.0-33.3); Mean Corpuscular Volume 102.9 fL (83.0-100.0); Mean Platelet Volume 8.7 fL (9.4-12.4); Monocytes # 0.8 K/mcL (0.0-1.3); Monocytes % 11.1 %; Neutrophils # 4.1 K/mcL (1.6-8.9); Platelet Count 387 K/mcL (140-400); Red Blood Count 2.74 M/mcL (3.82-4.97); Red Cell Distribution Width 13.3 % (11.5-14.5); Segmented Neutrophils % 58.3 %
[2022-02-03 07:29] LABS: Calcium 8.3 mg/dL (8.6-10.3); Potassium 3.9 mEq/L (3.5-5.1)
[2022-02-03] MEDS: Multivit/Ca/Min/Fe/FA 1 TAB TABLET PO SCH (07:49)
[2022-02-03] MEDS: Aspirin 81 MG TAB.CHEW PO SCH (07:50)
[2022-02-03] MEDS: Loratadine 10 MG TABLET PO SCH (07:50)
[2022-02-03] MEDS: levETIRAcetam 250 MG TABLET PO SCH ×2 (07:50→20:44)
[2022-02-04] MEDS: Multivit/Ca/Min/Fe/FA 1 TAB TABLET PO SCH (07:30)
[2022-02-04] MEDS: levETIRAcetam 250 MG TABLET PO SCH ×2 (07:32→20:28)
[2022-02-04] MEDS: Loratadine 10 MG TABLET PO SCH (07:32)
[2022-02-04] MEDS: Aspirin 81 MG TAB.CHEW PO SCH (07:33)
[2022-02-04 08:38] LABS: Calcium 8.5 mg/dL (8.6-10.3); Potassium 4.3 mEq/L (3.5-5.1)
[2022-02-05 02:54] LABS: Calcium 8.5 mg/dL (8.6-10.3)
[2022-02-05] MEDS: 0.9 % Sodium Chloride 1,000 ML IVC SCH ×2 (09:10→17:32)
[2022-02-05] MEDS: Multivit/Ca/Min/Fe/FA 1 TAB TABLET PO SCH (09:10)
[2022-02-05] MEDS: Loratadine 10 MG TABLET PO SCH (09:10)
[2022-02-05] MEDS: levETIRAcetam 250 MG TABLET PO SCH ×2 (09:10→21:09)
[2022-02-05] MEDS: Aspirin 81 MG TAB.CHEW PO SCH (09:10)
[2022-02-05 10:43] LABS: Bilirubin,Urine Negative (Negative); Blood,Urine Negative (Negative); Clarity,Urine Clear (Clear); Color,Urine Colorless (Yellow); Glucose,Urine (UA) Normal (Normal); Ketones,Urine Negative (Negative); Leukocyte Esterase,Urine Negative (Negative); Nitrite,Urine Negative (Negative); Protein,Urine Negative (Neg-Trace); Specific Gravity,Urine 1.009 (1.010-1.025); Urobilinogen,Urine Normal (Normal)
[2022-02-06] MEDS: 0.9 % Sodium Chloride 1,000 ML IVC SCH ×2 (01:49→11:29)
[2022-02-06] MEDS: Multivit/Ca/Min/Fe/FA 1 TAB TABLET PO SCH (08:32)
[2022-02-06] MEDS: Aspirin 81 MG TAB.CHEW PO SCH (08:32)
[2022-02-06] MEDS: Loratadine 10 MG TABLET PO SCH (08:32)
[2022-02-06] MEDS: levETIRAcetam 250 MG TABLET PO SCH ×2 (08:32→21:28)
[2022-02-06 10:50] LABS: Calcium 8.4 mg/dL (8.6-10.3); Potassium 4.7 mEq/L (3.5-5.1)
[2022-02-06 18:57] LABS: Adenovirus Not Detected (Not Detect); Bordetella Pertussis Not Detected (Not Detect); Chlamydophila pneumoniae Not Detected (Not Detect); Coronavirus 229E Not Detected (Not Detect); Coronavirus HKU1 Not Detected (Not Detect); Coronavirus NL63 Not Detected (Not Detect); Coronavirus OC43 Not Detected (Not Detect); Human Metapneumovirus Not Detected (Not Detect); Human Rhinovirus/Enterovirus Not Detected (Not Detect); Influenza A Subtype 2009 H1 Not Detected (Not Detect); Influenza B Not Detected (Not Detect); Mycoplasma pneumoniae Not Detected (Not Detect); Parainfluenza Virus 1 Not Detected (Not Detect); Parainfluenza Virus 2 Not Detected (Not Detect); Parainfluenza Virus 3 Not Detected (Not Detect); Parainfluenza Virus 4 Not Detected (Not Detect); Respiratory Syncytial Virus Not Detected (Not Detect); SARS-CoV-2 Not Detected (Not Detect)
[2022-02-06 23:19] VITALS: BP 115/65; PULSE 80; TEMP 97.8; O2SAT 94
== END 2022-02-07 03:05 | DRG 871 ==
LOC: EMEROOARM 09:31 → SUATTDRO 17:00 → 2NNU 17:00 → 3ANU 01-29 13:30
PROVIDERS: ADMIT Hospitalist; ATTEND Internal Medicine